=== PATIENT | female | born 1955 | race Caucasian/White ===

== ENCOUNTER 2016-07-20 10:59 | Day surgery (SDC) | payer OTHER ==
[~2016-07-20] VITALS: Ht 149.9 cm; Wt 77.1 kg
[~2016-07-20 10:59] MED LIST: ACCOLATE20 MG PO; ADVAIR HFA120 INHAL1 IH; ADVAIR HFA120 INHALA IH; ALBUTEROL2.5 MG/3 M IH; ALPRAZOLAM1 MG PO; ALPRAZOLAM2 MG PO; AMBIEN10 MG PO; ATENOLOL25 MG PO; AUGMENTIN875 MG PO; BACLOFEN20 MG PO; BENADRYL ALLERG25 MG PO; BENADRYL25 MG PO; BENZONATATE200 MG PO; BUSPAR5 MG PO; CEFTIN500 MG PO; CELEBREX100 MG PO; CELEBREX200 MG PO; CELEXA20 MG PO; CELEXA40 MG PO; CENTRUM SILVER1 EAC4 PO; CIPRO250 MG PO; CITALOPRAM HBR20 MG PO; CITALOPRAM HBR40 MG PO; CRANBERRY TABL1 EACH PO; DESYREL100 MG PO; DOXYCYCLINE HY100 M3 PO; DOXYCYCLINE HY100 MG PO; DOXYCYCLINE MO100 MG PO; DULERA 200 MCG/13 GM IH; EX-LAX MAXIMUM25 MG PO; FLEXERIL10 MG PO; FLOVENT 22120 INHALA IH; FLUCONAZOLE150 MG PO; FOLIC ACID0.4 MG PO; GABAPENTIN100 MG PO; GABAPENTIN300 MG PO; HYDROCODON-ACE1 EAC7 PO; HYDROXYCHLOROQ200 MG PO; IBUPROFEN200 M1 PO; INCRUSE ELLI62.5 MCG IH; INDAPAMIDE2.5 MG PO; IPRATR-ALBUTEROL3 ML IH; LEVAQUIN500 MG PO; LEVOFLOXACIN750 MG PO; LIDOCAINE700 MG TD; LIDOCREAM15 GM TP; LOZOL2.5 MG PO; MECLIZINE HCL25 MG PO; MELOXICAM15 MG PO; MOBIC15 MG PO; MONTELUKAST SOD10 MG PO; MOTION SICKNESS25 M4 PO; MS CONTIN,ORAMO30 MG PO; MYCOSTATIN 100,60 ML PO; NEURONTIN300 MG PO; NEURONTIN400 MG PO; OXAYDO5 MG PO; OXYCODONE HCL15 MG PO; PERCOCET 5/31 TABLET PO; PHENAZOPYRIDIN200 MG PO; PLAQUENIL200 MG PO; PREDNISONE10 MG PO; PREDNISONE20 MG PO; PRILOSEC OTC20 MG PO; PRILOSEC20 MG PO; PRILOSEC40 MG PO; PYRIDIUM200 MG PO; QUETIAPINE FUM200 MG PO; Remove Lidoderm Patch TD; SANTYL30 GM TP; SEROQUEL100 MG PO; SEROQUEL200 MG PO; SINGULAIR10 MG PO; SPIRIVA RESPIMAT4 GM IH; SPIRIVA1 INHALATI IH; TENORMIN25 MG PO; TESSALON200 MG PO; THEO-24200 MG PO; THEO-DUR,THEOC200 MG PO; THEOPHYLLINE A200 M1 PO; TRAMADOL HCL50 MG PO; Tums,OsCal PO; VENTOLIN HFA18 GM IH; VISTARIL50 MG PO; VITAMIN B12 100MCG PO; VOLTAREN75 MG PO; XANAX0.25 MG PO; XANAX1 MG PO; ZANAFLEX6 MG PO; ZOFRAN4 MG PO; ZOFRAN8 MG PO; flovent; morphine sulfate
== END 2016-07-20 13:00 | disposition home or self-care (01) ==
LOC: PAIN 10:59 → SDC 11:30 → PAIN 13:00
PROC: 015B3ZZ Destruction of Lumbar Nerve, Percutaneous Approach (ICD-10-PCS; principal; 2016-07-20)
DX: M47.816 Spondylosis without myelopathy or radiculopathy, lumbar region (principal); M54.5 Low back pain; F41.9 Anxiety disorder, unspecified; D86.0 Sarcoidosis of lung; J45.909 Unspecified asthma, uncomplicated; J44.9 Chronic obstructive pulmonary disease, unspecified; G47.30 Sleep apnea, unspecified; I11.0 Hypertensive heart disease with heart failure; I50.9 Heart failure, unspecified; E78.5 Hyperlipidemia, unspecified; F43.23 Adjustment disorder with mixed anxiety and depressed mood; F13.20 Sedative, hypnotic or anxiolytic dependence, uncomplicated; K21.9 Gastro-esophageal reflux disease without esophagitis; R73.09 Other abnormal glucose; Z87.891 Personal history of nicotine dependence; Z88.2 Allergy status to sulfonamides; Z88.6 Allergy status to analgesic agent; Z88.8 Allergy status to other drugs, medicaments and biological substances; Z91.041 Radiographic dye allergy status
CPT/HCPCS: J1030; J2250; J2405; J3010; S0020

== ENCOUNTER 2016-08-12 11:31 | Day surgery (SDC) | payer OTHER ==
[~2016-08-12] VITALS: Ht 149.9 cm; Wt 76.7 kg
[2016-08-12] MEDS ORDERED: ORAPRED ODT10 MG PO (12:16)
== END 2016-08-12 15:35 | disposition home or self-care (01) ==
LOC: PAIN 11:31 → SDC 11:45 → PAIN 15:35
PROC: 015B3ZZ Destruction of Lumbar Nerve, Percutaneous Approach (ICD-10-PCS; principal; 2016-08-12)
DX: M47.816 Spondylosis without myelopathy or radiculopathy, lumbar region (principal); M54.5 Low back pain; F41.9 Anxiety disorder, unspecified; M87.052 Idiopathic aseptic necrosis of left femur; D86.9 Sarcoidosis, unspecified; J45.909 Unspecified asthma, uncomplicated; J44.9 Chronic obstructive pulmonary disease, unspecified; G47.30 Sleep apnea, unspecified; I11.0 Hypertensive heart disease with heart failure; I50.9 Heart failure, unspecified; E78.5 Hyperlipidemia, unspecified; Z87.891 Personal history of nicotine dependence; Z88.2 Allergy status to sulfonamides; Z88.6 Allergy status to analgesic agent; Z88.8 Allergy status to other drugs, medicaments and biological substances; Z91.041 Radiographic dye allergy status
CPT/HCPCS: J1030; J1885; J2250; J3010; S0020

== ENCOUNTER 2016-12-07 08:41 | Day surgery (SDC) | payer OTHER ==
[~2016-12-07] VITALS: Ht 152.4 cm; Wt 81.7 kg
[~2016-12-07 08:41] MED LIST changes: +DULERA 100 MCG/13 GM IH; +ORAPRED ODT10 MG PO; +ZOLOFT100 MG PO
== END 2016-12-07 10:30 | disposition home or self-care (01) ==
LOC: PAIN 08:41 → SDC 09:00 → PAIN 10:30
DX: M16.12 Unilateral primary osteoarthritis, left hip (principal); M47.816 Spondylosis without myelopathy or radiculopathy, lumbar region; M54.2 Cervicalgia; M54.9 Dorsalgia, unspecified; G89.29 Other chronic pain; J44.9 Chronic obstructive pulmonary disease, unspecified; K21.9 Gastro-esophageal reflux disease without esophagitis; I11.0 Hypertensive heart disease with heart failure; I50.9 Heart failure, unspecified; G47.30 Sleep apnea, unspecified; F41.9 Anxiety disorder, unspecified; J45.50 Severe persistent asthma, uncomplicated; D64.9 Anemia, unspecified; E66.3 Overweight; Z68.35 Body mass index [BMI] 35.0-35.9, adult; D86.0 Sarcoidosis of lung; Z87.891 Personal history of nicotine dependence; Z79.891 Long term (current) use of opiate analgesic; Z88.2 Allergy status to sulfonamides
CPT/HCPCS: J1030; J1100; J2250; J2405; J3010; S0020

== ENCOUNTER → 2017-02-18 | Outpatient (CLI) | payer OTHER ==
[~2017-02-18] VITALS: Ht 149.9 cm; Wt 83.5 kg
[~2017-02-18] MED LIST changes: +IRON325 M1 PO
== END | disposition home or self-care (01) ==
LOC: AMB 10:29
DX: D50.9 Iron deficiency anemia, unspecified (principal); Z53.09 Procedure and treatment not carried out because of other contraindication; Z80.0 Family history of malignant neoplasm of digestive organs; K59.09 Other constipation; R19.7 Diarrhea, unspecified; M19.90 Unspecified osteoarthritis, unspecified site; G47.33 Obstructive sleep apnea (adult) (pediatric); R73.03 Prediabetes; D86.0 Sarcoidosis of lung; Z87.891 Personal history of nicotine dependence; Z79.891 Long term (current) use of opiate analgesic; J44.9 Chronic obstructive pulmonary disease, unspecified; K21.9 Gastro-esophageal reflux disease without esophagitis; F43.23 Adjustment disorder with mixed anxiety and depressed mood; J45.50 Severe persistent asthma, uncomplicated; E66.3 Overweight; Z68.38 Body mass index [BMI] 38.0-38.9, adult; F13.20 Sedative, hypnotic or anxiolytic dependence, uncomplicated; G89.29 Other chronic pain; M54.9 Dorsalgia, unspecified; E78.5 Hyperlipidemia, unspecified; I11.0 Hypertensive heart disease with heart failure; I50.9 Heart failure, unspecified; Z88.8 Allergy status to other drugs, medicaments and biological substances; Z87.442 Personal history of urinary calculi; Z88.2 Allergy status to sulfonamides; Z91.041 Radiographic dye allergy status
CPT/HCPCS: 93005; J2405; J3010

== ENCOUNTER → 2017-04-14 | Outpatient (CLI) | payer OTHER ==
[~2017-04-14] VITALS: Ht 152.4 cm; Wt 83.9 kg
[~2017-04-14] MED LIST changes: +MOVANTIK25 MG PO
[2017-04-14 09:35] LABS: INTER. NORMALIZED RATIO 1.2
[2017-04-14 09:38] LABS: EOSINOPHIL (%) 5.1 % (0-5); EOSINOPHIL COUNT 0.2 K/uL (0-0.3); HEMATOCRIT 29.2 % (36.0-46.0); INSTRUMENT ABS NEUTROPHIL CT 2.3 K/uL; LYMPHOCYTE COUNT 1.5 K/uL (1.0-2.8); MCH 20.3 PG (29.0-34.0); MCHC 28.4 G/DL (30.0-36.0); MCV 71.6 FL (83-99); MONOCYTE (%) 9.8 % (3-12); MONOCYTE COUNT 0.4 K/uL (0-0.8); NEUTROPHIL (%) 50.9 % (45-76); NEUTROPHIL COUNT 2.3 K/uL (1.8-6.4); PLATELET COUNT 208 K/uL (156-360); RBC DIS.WIDTH-CV 19.7 % (11.8-14.6); RBC DIS.WIDTH-SD 50.1 % (39-53); RED BLOOD COUNT 4.08 M/uL (3.80-5.20); WHITE BLOOD COUNT 4.5 K/uL (4.1-10.2)
[2017-04-14 10:21] LABS: ABS NEUTROPHIL COUNT 2.3; ANISOCYTOSIS 1+; BASOPHILS 1.8 %; EOSINOPHIL ABS CT 0.3; LYMPHOCYTES 34.2 % (15.0-45.0); MICROCYTOSIS 1+; NUCLEATED RBC'S 0.9; OVALOCYTES 1+; PLAT.SUFFICIENCY ADEQUATE; POIKILOCYTOSIS 1+; SMUDGE CELLS 3.5
[2017-04-17 17:17] LABS: NUMBER OF MARKERS 22; SPECIMEN VIABILITY 98
[2017-04-18 10:16] LABS: MISCELLANEOUS REF BONE MARROW NOT DONE
== END | disposition home or self-care (01) ==
LOC: OPR 04-06 10:00 → EDSTATUS 09:00 → OPR 09:00
PROVIDERS: Internal Medicine Medical Oncology
PROC: 07DS3ZX Extraction of Vertebral Bone Marrow, Percutaneous Approach, Diagnostic (ICD-10-PCS; principal; 2017-04-14)
DX: D50.9 Iron deficiency anemia, unspecified (principal); D64.9 Anemia, unspecified; R71.8 Other abnormality of red blood cells; M54.5 Low back pain; K21.9 Gastro-esophageal reflux disease without esophagitis; J44.9 Chronic obstructive pulmonary disease, unspecified; M62.838 Other muscle spasm; D86.9 Sarcoidosis, unspecified; R42 Dizziness and giddiness; R21 Rash and other nonspecific skin eruption; R51 Headache; R19.7 Diarrhea, unspecified; F43.23 Adjustment disorder with mixed anxiety and depressed mood; G89.29 Other chronic pain; J45.50 Severe persistent asthma, uncomplicated; F13.20 Sedative, hypnotic or anxiolytic dependence, uncomplicated; I11.0 Hypertensive heart disease with heart failure; I50.9 Heart failure, unspecified; E78.5 Hyperlipidemia, unspecified; M06.4 Inflammatory polyarthropathy; G47.33 Obstructive sleep apnea (adult) (pediatric); Z88.6 Allergy status to analgesic agent; Z88.2 Allergy status to sulfonamides; Z88.8 Allergy status to other drugs, medicaments and biological substances; Z91.013 Allergy to seafood
CPT/HCPCS: 77012; 85007; 85025; 85610; J2405; J3010

== ENCOUNTER 2017-08-12 15:32 | Inpatient (IN) | payer OTHER ==
[~2017-08-12] VITALS: Ht 152.4 cm; Wt 88.2 kg
[~2017-08-12 15:32] MED LIST changes: +ALBUTEROL1.25 MG/3 IH; -ALBUTEROL2.5 MG/3 M IH; +BACLOFEN10 MG PO; -BACLOFEN20 MG PO; +BUSPAR30 MG PO; -BUSPAR5 MG PO; -NEURONTIN300 MG PO; -PRILOSEC OTC20 MG PO; -THEOPHYLLINE A200 M1 PO; +THEOPHYLLINE400 MG PO
[2017-08-12 16:03] LABS: HEMATOCRIT 28.9 % (36.0-46.0); HEMOGLOBIN 8.6 G/DL (11.9-15.5); MCH 23.1 PG (29.0-34.0); MCHC 29.8 G/DL (30.0-36.0); MCV 77.7 FL (83-99); PLATELET COUNT 217 K/uL (156-360); RBC DIS.WIDTH-CV 17.6 % (11.8-14.6); RBC DIS.WIDTH-SD 50.3 % (39-53); RED BLOOD COUNT 3.72 M/uL (3.80-5.20); WHITE BLOOD COUNT 5.7 K/uL (4.1-10.2)
[2017-08-12 16:11] LABS: CHLORIDE 107 mEq/L (99-109); POTASSIUM 3.3 mEq/L (3.7-5.4); SODIUM 141 mEq/L (136-147)
[2017-08-12 16:13] LABS: GLUCOSE 113 mg/dL (70-99)
[2017-08-12 16:16] LABS: CREATININE 0.8 mg/dL (0.6-1.3); GFR ESTIMATE (CALCULATED) > 59 mL/min/
[2017-08-12 16:17] LABS: UREA NITROGEN (BUN) 13 mg/dL (9-23)
[2017-08-12 16:23] LABS: TROP-I INTERPRETATION NEGATIVE; TROPONIN-I < 0.01 ng/mL (0.0-0.30)
[2017-08-12 17:49] LABS: APPEARANCE CLOUDY ((CLEAR)); BILIRUBIN NEGATIVE; BLOOD NEGATIVE; COLOR YELLOW ((YELLOW)); GLUCOSE (STRIP) NEGATIVE; KETONES NEGATIVE; LEUKOCYTES LARGE; NITRITE NEGATIVE; PROTEIN (STRIP) 30; SPECIFIC GRAVITY 1.024 (1.000-1.030); UROBILINOGEN 0.2 MG/DL (0.2-1.0)
[2017-08-12 18:06] LABS: BACTERIA RARE /HPF; CALCIUM OXALATE CRYSTALS 4+ /HPF; EPITHELIAL CELLS 2+ /HPF; HYALINE CASTS 0-5 /LPF; MUCUS TRACE /LPF; WHITE BLOOD CELLS 15-20 /HPF (0-5)
[2017-08-12] MEDS ORDERED: BELSOMRA20 MG PO (18:20)
[2017-08-12] MEDS ORDERED: CEFTIN500 MG PO (18:20)
[2017-08-12] MEDS ORDERED: BREO ELLIPTA I1 EACH IH (18:21)
[2017-08-12 19:23] LABS: ALBUMIN 3.4 g/dL (3.2-4.8)
[2017-08-12 19:26] LABS: TOTAL PROTEIN 7.4 g/dL (6.4-8.3)
[2017-08-12 19:28] LABS: TOTAL BILIRUBIN 0.2 mg/dL (0.0-1.0)
[2017-08-12 19:29] LABS: ALKALINE PHOSPHATASE 77 IU/L (3-129)
[2017-08-12 19:31] LABS: AST (GOT) 19 IU/L (2-34); DIRECT BILIRUBIN 0.1 mg/dL (0.0-0.3)
[2017-08-12 19:32] LABS: ALT (GPT) 7 IU/L (3-49)
[2017-08-12 20:01] LABS: THEOPHYLLINE 7.6 MCG/ML (10-20)
[2017-08-12 21:20] VITALS: BP 112/66
[2017-08-12 23:44] VITALS: BP 110/64
[2017-08-13 04:00] VITALS: BP 128/76
[2017-08-13 06:33] LABS: BASOPHIL (%) 0 % (0-1); EOSINOPHIL (%) 0 % (0-5); HEMATOCRIT 28.7 % (36.0-46.0); HEMOGLOBIN 8.2 G/DL (11.9-15.5); IMMATURE GRANULOCYTE (%) 0.6 % (0.0-0.7); LYMPHOCYTE (%) 16.4 % (15-42); LYMPHOCYTE COUNT 0.6 K/uL (1.0-2.8); MCH 22.8 PG (29.0-34.0); MCHC 28.6 G/DL (30.0-36.0); MCV 79.9 FL (83-99); MONOCYTE (%) 1.4 % (3-12); MONOCYTE COUNT 0.1 K/uL (0-0.8); NEUTROPHIL (%) 81.6 % (45-76); NEUTROPHIL COUNT 2.9 K/uL (1.8-6.4); PLATELET COUNT 216 K/uL (156-360); RBC DIS.WIDTH-CV 17.7 % (11.8-14.6); RBC DIS.WIDTH-SD 51.8 % (39-53); RED BLOOD COUNT 3.59 M/uL (3.80-5.20); WHITE BLOOD COUNT 3.6 K/uL (4.1-10.2)
[2017-08-13 07:15] LABS: CHLORIDE 112 MEQ/L (99-109); CREATININE 0.6 MG/DL (0.6-1.3); GFR ESTIMATE (CALCULATED) > 59 mL/min/; SODIUM 144 MEQ/L (136-147); UREA NITROGEN (BUN) 12 mg/dL (9-23)
[2017-08-13 07:23] LABS: GLUCOSE 225 mg/dL (70-99); POTASSIUM 4.2 MEQ/L (3.7-5.4)
[2017-08-13 08:17] VITALS: BP 145/71
[2017-08-13 13:28] VITALS: BP 147/72
[2017-08-13 16:41] VITALS: BP 136/89
[2017-08-13 20:12] VITALS: BP 160/70
[2017-08-14 00:02] VITALS: BP 130/58
[2017-08-14 03:47] VITALS: BP 130/58
[2017-08-14 08:19] VITALS: BP 149/69
[2017-08-14 08:43] LABS: BASOPHIL (%) 0.1 % (0-1); EOSINOPHIL (%) 0 % (0-5); HEMATOCRIT 27.8 % (36.0-46.0); HEMOGLOBIN 8.1 G/DL (11.9-15.5); IMMATURE GRANULOCYTE (%) 0.5 % (0.0-0.7); LYMPHOCYTE (%) 8.9 % (15-42); LYMPHOCYTE COUNT 0.7 K/uL (1.0-2.8); MCH 22.9 PG (29.0-34.0); MCHC 29.1 G/DL (30.0-36.0); MCV 78.8 FL (83-99); MONOCYTE (%) 2.8 % (3-12); MONOCYTE COUNT 0.2 K/uL (0-0.8); NEUTROPHIL (%) 87.7 % (45-76); NEUTROPHIL COUNT 7.2 K/uL (1.8-6.4); PLATELET COUNT 247 K/uL (156-360); RBC DIS.WIDTH-CV 17.6 % (11.8-14.6); RBC DIS.WIDTH-SD 50.3 % (39-53); RED BLOOD COUNT 3.53 M/uL (3.80-5.20); WHITE BLOOD COUNT 8.2 K/uL (4.1-10.2)
[2017-08-14 09:25] LABS: CHLORIDE 109 MEQ/L (99-109); CREATININE 0.6 MG/DL (0.6-1.3); GFR ESTIMATE (CALCULATED) > 59 mL/min/; GLUCOSE 130 mg/dL (70-99); SODIUM 146 MEQ/L (136-147); UREA NITROGEN (BUN) 16 mg/dL (9-23)
[2017-08-14 09:26] LABS: POTASSIUM 5.2 MEQ/L (3.7-5.4)
[2017-08-15] VITALS: BP 119/68
[2017-08-15 06:16] LABS: BASOPHIL (%) 0.3 % (0-1); EOSINOPHIL (%) 0.4 % (0-5); HEMATOCRIT 26.3 % (36.0-46.0); HEMOGLOBIN 7.6 G/DL (11.9-15.5); IMMATURE GRANULOCYTE (%) 0.3 % (0.0-0.7); LYMPHOCYTE (%) 24.9 % (15-42); LYMPHOCYTE COUNT 1.9 K/uL (1.0-2.8); MCH 22.7 PG (29.0-34.0); MCHC 28.9 G/DL (30.0-36.0); MCV 78.5 FL (83-99); MONOCYTE (%) 6.3 % (3-12); MONOCYTE COUNT 0.5 K/uL (0-0.8); NEUTROPHIL (%) 67.8 % (45-76); NEUTROPHIL COUNT 5.2 K/uL (1.8-6.4); PLATELET COUNT 221 K/uL (156-360); RBC DIS.WIDTH-CV 17.9 % (11.8-14.6); RED BLOOD COUNT 3.35 M/uL (3.80-5.20); WHITE BLOOD COUNT 7.7 K/uL (4.1-10.2)
[2017-08-15 06:41] LABS: ALKALINE PHOSPHATASE 57 IU/L (3-129); ALT (GPT) 7 IU/L (3-49); AST (GOT) 14 IU/L (2-34); CHLORIDE 109 MEQ/L (99-109); CREATININE 0.7 MG/DL (0.6-1.3); GFR ESTIMATE (CALCULATED) > 59 mL/min/; GLUCOSE 106 mg/dL (70-99); SODIUM 145 MEQ/L (136-147); TOTAL BILIRUBIN 0.2 MG/DL (0.0-1.0); TOTAL PROTEIN 6.1 G/DL (6.4-8.3); UREA NITROGEN (BUN) 16 mg/dL (9-23)
[2017-08-15 06:43] LABS: POTASSIUM 3.6 MEQ/L (3.7-5.4)
[2017-08-15 08:00] VITALS: BP 140/76
[2017-08-15 16:00] VITALS: BP 144/84
[2017-08-16 01:01] VITALS: BP 177/93
[2017-08-16 06:40] LABS: BASOPHIL (%) 0.2 % (0-1); EOSINOPHIL (%) 0.2 % (0-5); HEMOGLOBIN 7.5 G/DL (11.9-15.5); IMMATURE GRANULOCYTE (%) 0.5 % (0.0-0.7); LYMPHOCYTE (%) 17.5 % (15-42); LYMPHOCYTE COUNT 1.2 K/uL (1.0-2.8); MCH 22.3 PG (29.0-34.0); MCHC 28.8 G/DL (30.0-36.0); MCV 77.2 FL (83-99); MONOCYTE (%) 4.4 % (3-12); MONOCYTE COUNT 0.3 K/uL (0-0.8); NEUTROPHIL (%) 77.2 % (45-76); NEUTROPHIL COUNT 5.1 K/uL (1.8-6.4); PLATELET COUNT 242 K/uL (156-360); RBC DIS.WIDTH-CV 17.3 % (11.8-14.6); RBC DIS.WIDTH-SD 49.3 % (39-53); RED BLOOD COUNT 3.37 M/uL (3.80-5.20); WHITE BLOOD COUNT 6.6 K/uL (4.1-10.2)
[2017-08-16 07:04] LABS: ALBUMIN 3.1 G/DL (3.2-4.8); ALKALINE PHOSPHATASE 64 IU/L (3-129); ALT (GPT) 8 IU/L (3-49); AST (GOT) 16 IU/L (2-34); CHLORIDE 107 MEQ/L (99-109); CREATININE 0.6 MG/DL (0.6-1.3); GFR ESTIMATE (CALCULATED) > 59 mL/min/; GLUCOSE 115 mg/dL (70-99); SODIUM 143 MEQ/L (136-147); TOTAL BILIRUBIN 0.2 MG/DL (0.0-1.0); TOTAL PROTEIN 6.2 G/DL (6.4-8.3); UREA NITROGEN (BUN) 12 mg/dL (9-23)
[2017-08-16 07:09] LABS: POTASSIUM 4.5 MEQ/L (3.7-5.4)
[2017-08-16 08:50] VITALS: BP 181/96
[2017-08-16 12:05] VITALS: BP 143/73
[2017-08-16 12:33] VITALS: BP 151/90
[2017-08-16 13:33] VITALS: BP 140/69
[2017-08-16 14:30] VITALS: BP 160/79
[2017-08-16] MEDS ORDERED: LEVAQUIN750 MG PO ×2 (15:45→15:49)
[2017-08-16] MEDS ORDERED: PREDNISONE10 MG PO ×2 (15:45→15:48)
[2017-08-16] MEDS ORDERED: MUCINEX600 MG PO ×2 (15:45→15:48)
== END 2017-08-16 17:14 | disposition home health service (06) | DRG 871 ==
LOC: EME 15:32 → 5SOUTH 18:54 → EDOF 18:54 → ENRESERV 19:08 → 5SOUTH 21:05
PROVIDERS: Hospitalist; Internal Medicine; Nurse Practitioner Family
PROC: 5A09357 Assistance with Respiratory Ventilation, Less than 24 Consecutive Hours, Continuous Positive Airway Pressure (ICD-10-PCS; principal; 2017-08-14)
PROC: 30233N1 Transfusion of Nonautologous Red Blood Cells into Peripheral Vein, Percutaneous Approach (ICD-10-PCS; 2017-08-16)
DX: A41.9 Sepsis, unspecified organism (principal); J15.9 Unspecified bacterial pneumonia; J96.11 Chronic respiratory failure with hypoxia; J44.0 Chronic obstructive pulmonary disease with (acute) lower respiratory infection; J44.1 Chronic obstructive pulmonary disease with (acute) exacerbation; I11.0 Hypertensive heart disease with heart failure; I50.32 Chronic diastolic (congestive) heart failure; I27.20 Pulmonary hypertension, unspecified; E87.6 Hypokalemia; G47.33 Obstructive sleep apnea (adult) (pediatric); D86.0 Sarcoidosis of lung; F11.20 Opioid dependence, uncomplicated; G89.29 Other chronic pain; M54.5 Low back pain; E78.00 Pure hypercholesterolemia, unspecified; D50.9 Iron deficiency anemia, unspecified; K21.9 Gastro-esophageal reflux disease without esophagitis; F41.9 Anxiety disorder, unspecified; F31.9 Bipolar disorder, unspecified; M19.90 Unspecified osteoarthritis, unspecified site; E66.9 Obesity, unspecified; Z68.37 Body mass index [BMI] 37.0-37.9, adult; Z87.891 Personal history of nicotine dependence; Z87.442 Personal history of urinary calculi; Z90.710 Acquired absence of both cervix and uterus
CPT/HCPCS: 71046; 71250; 80048; 80053; 80076; 80198; 80202; 81003; 83605; 83880; 84484; 85025; 85027; 86850; 86870; 86900; 86901; 86905; 86920; 87040; 87070; 87205; 87449; 93005; 93306; 94010; 94640; 94640 76; 94660; 94668; 94760; 94799; 99202; 99281; 99285; J0295; J0456; J0696; J1650; J1940; J2920; J2930; J3370; J7030; J7050; P9016

== ENCOUNTER 2017-09-26 11:04 | Day surgery (SDC) | payer OTHER ==
[~2017-09-26] VITALS: Ht 152.4 cm; Wt 84.4 kg
[~2017-09-26 11:04] MED LIST changes: +BELSOMRA20 MG PO; +BREO ELLIPTA I1 EACH IH; +LEVAQUIN750 MG PO; +MUCINEX600 MG PO
== END 2017-09-26 12:45 | disposition home or self-care (01) ==
LOC: PAIN 11:04 → SDC 11:30 → PAIN 12:45
DX: M16.12 Unilateral primary osteoarthritis, left hip (principal); M87.052 Idiopathic aseptic necrosis of left femur; M47.818 Spondylosis without myelopathy or radiculopathy, sacral and sacrococcygeal region; M62.838 Other muscle spasm; G89.29 Other chronic pain; M54.9 Dorsalgia, unspecified; I11.0 Hypertensive heart disease with heart failure; I50.9 Heart failure, unspecified; D50.9 Iron deficiency anemia, unspecified; J44.9 Chronic obstructive pulmonary disease, unspecified
CPT/HCPCS: J1030; J2250; S0020

== ENCOUNTER 2017-10-05 20:41 | Inpatient (IN) | payer OTHER ==
[~2017-10-05] VITALS: Ht 152.4 cm; Wt 83.4 kg
[2017-10-05 21:14] LABS: BASE EXCESS -5.5 mEq/L (-3 to +3); BICARBONATE 22.3 mEq/L (22-26); CARBOXY HGB 2.4 % (0-5); COMMENTS - BLOOD GASES C+A+; DEVICE 840 VENT; FI02 80 %; METHEMOGLOBIN 0.9 % (0-1.5); MODE SPONT/NIPPV; PCO2 52 mm Hg (35-45); PO2 53 mm Hg (80-100); SITE LR; TOTAL RESP RATE 25 resp/min; pH 7.24 (7.35-7.45)
[2017-10-05 21:15] LABS: PEEP 5 CM/H20; PRES. SUPPORT 12 CM/H2O
[2017-10-05 21:17] LABS: HEMOGLOBIN 13.2 G/DL (11.9-15.5); MCH 26.1 PG (29.0-34.0); MCHC 30.7 G/DL (30.0-36.0); MCV 85.1 FL (83-99); PLATELET COUNT 181 K/uL (156-360); RBC DIS.WIDTH-CV 22.2 % (11.8-14.6); RBC DIS.WIDTH-SD 67.8 % (39-53); RED BLOOD COUNT 5.05 M/uL (3.80-5.20); WHITE BLOOD COUNT 3.5 K/uL (4.1-10.2)
[2017-10-05 21:27] LABS: CHLORIDE 110 mEq/L (99-109); POTASSIUM 3.1 mEq/L (3.7-5.4); SODIUM 142 mEq/L (136-147)
[2017-10-05 21:29] LABS: GLUCOSE 138 mg/dL (70-99)
[2017-10-05 21:33] LABS: CREATININE 0.8 mg/dL (0.6-1.3); GFR ESTIMATE (CALCULATED) > 59 mL/min/
[2017-10-05 21:34] LABS: UREA NITROGEN (BUN) 14 mg/dL (9-23)
[2017-10-05 21:37] LABS: TROP-I INTERPRETATION NEGATIVE; TROPONIN-I 0.02 ng/mL (0.0-0.30)
[2017-10-05 22:09] LABS: ABS NEUTROPHIL COUNT 2.1; ATYPICAL LYMPHOCYTE 9.8 %; BAND NEUTROPHILS 39.3 % (0-8.0); BASOPHILS 0.9 %; EOSINOPHIL ABS CT 0.1; EOSINOPHILS 1.8 % (0-5.0); LYMPHOCYTES 9.8 % (15.0-45.0); METAMYELOCYTES 8.9 %; MONOCYTES 8.1 % (0-9.0); SEG.NEUTROPHILS 21.4 % (46.0-76.0)
[2017-10-05 22:28] LABS: BASE EXCESS -5.3 mEq/L (-3 to +3); BICARBONATE 22.9 mEq/L (22-26); CARBOXY HGB 2.2 % (0-5); COMMENTS - BLOOD GASES C+A+; DEVICE 980 VENT; METHEMOGLOBIN 1.1 % (0-1.5); PCO2 56 mm Hg (35-45); PO2 68 mm Hg (80-100); SITE LR; pH 7.22 (7.35-7.45)
[2017-10-05 22:29] LABS: FI02 80 %; MODE SPONT NIPPV; PEEP 5 CM/H20; PRES. SUPPORT 12 CM/H2O; TOTAL RESP RATE 24 resp/min
[2017-10-05 23:32] LABS: MAGNESIUM 1.2 mg/dL (1.3-2.7)
[2017-10-05 23:56] VITALS: BP 103/63
[2017-10-06] VITALS (20 sets, daily range): BP systolic 91–144; BP diastolic 52–86
[2017-10-06 03:15] LABS: HEMATOCRIT 35.1 % (36.0-46.0); MCH 26.4 PG (29.0-34.0); MCHC 30.8 G/DL (30.0-36.0); MCV 85.8 FL (83-99); RBC DIS.WIDTH-CV 21.9 % (11.8-14.6); RBC DIS.WIDTH-SD 68.1 % (39-53); RED BLOOD COUNT 4.09 M/uL (3.80-5.20); WHITE BLOOD COUNT 3.7 K/uL (4.1-10.2)
[2017-10-06 03:20] LABS: CHLORIDE 109 mEq/L (99-109); POTASSIUM 3.3 mEq/L (3.7-5.4); SODIUM 142 mEq/L (136-147)
[2017-10-06 03:23] LABS: GLUCOSE 140 mg/dL (70-99)
[2017-10-06 03:26] LABS: CREATININE 0.7 mg/dL (0.6-1.3); GFR ESTIMATE (CALCULATED) > 59 mL/min/; PHOSPHORUS 2.1 mg/dL (2.5-4.9)
[2017-10-06 03:27] LABS: UREA NITROGEN (BUN) 14 mg/dL (9-23)
[2017-10-06 03:58] LABS: HEMOGLOBIN 10.8 G/DL (11.9-15.5)
[2017-10-06 05:17] LABS: ABS NEUTROPHIL COUNT 2.6; ANISOCYTOSIS 2+; ATYPICAL LYMPHOCYTE 3.5 %; EOSINOPHIL ABS CT 0; LYMPHOCYTES 12.3 % (15.0-45.0); METAMYELOCYTES 4.4 %; MICROCYTOSIS 2+; MONOCYTES 4.4 % (0-9.0); MYELOCYTES 4.4 %; OVALOCYTES 1+; PLAT.SUFFICIENCY DECREASED; POIKILOCYTOSIS 1+; POLYCHROMASIA 1+; TOX.VACUOLIZATION 2+; TOXIC GRANULATION 2+
[2017-10-06 05:18] LABS: PLATELET COUNT 126 K/uL (156-360)
[2017-10-06 05:29] LABS: BASE EXCESS -7.1 mEq/L (-3 to +3); BICARBONATE 21.1 mEq/L (22-26); METHEMOGLOBIN 1.5 % (0-1.5); PCO2 54 mm Hg (35-45); PO2 59 mm Hg (80-100); SITE LR
[2017-10-06 05:30] LABS: COMMENTS - BLOOD GASES A+C+; CONTINUOUS POS AIRWAY PRESSURE 5 cm H2O; DEVICE MASKVENT; FI02 60 %; MODE SPONT; PRES. SUPPORT 15 CM/H2O
[2017-10-06 07:59] LABS: ANISOCYTOSIS 1+; MICROCYTOSIS 1+; POIKILOCYTOSIS 1+
[2017-10-06 11:21] LABS: BASE EXCESS -7.5 mEq/L (-3 to +3); BICARBONATE 20.7 mEq/L (22-26); CARBOXY HGB 2.1 % (0-5); METHEMOGLOBIN 1.5 % (0-1.5); PCO2 53 mm Hg (35-45); PO2 69 mm Hg (80-100)
[2017-10-06 11:23] LABS: SITE RR
[2017-10-06 11:24] LABS: COMMENTS - BLOOD GASES A+C+; DEVICE HHFNC; FI02 70 %; O2 FLOW 30 L/MIN
[2017-10-07] VITALS (15 sets, daily range): BP systolic 98–158; BP diastolic 48–83
[2017-10-08 04:00] VITALS: BP 133/63
[2017-10-08 05:57] LABS: HEMATOCRIT 32.8 % (36.0-46.0); MCH 26.1 PG (29.0-34.0); MCHC 30.5 G/DL (30.0-36.0); MCV 85.6 FL (83-99); PLATELET COUNT 159 K/uL (156-360); RBC DIS.WIDTH-CV 24.3 % (11.8-14.6); RBC DIS.WIDTH-SD 76.1 % (39-53); RED BLOOD COUNT 3.83 M/uL (3.80-5.20); WHITE BLOOD COUNT 4.6 K/uL (4.1-10.2)
[2017-10-08 06:23] LABS: CHLORIDE 107 MEQ/L (99-109); CREATININE 0.6 MG/DL (0.6-1.3); GFR ESTIMATE (CALCULATED) > 59 mL/min/; GLUCOSE 129 mg/dL (70-99); MAGNESIUM 2.3 mg/dl (1.3-2.7); PHOSPHORUS 1.9 mg/dL (2.5-4.9); SODIUM 139 MEQ/L (136-147); UREA NITROGEN (BUN) 21 mg/dL (9-23)
[2017-10-08 06:24] LABS: POTASSIUM 4.6 MEQ/L (3.7-5.4)
[2017-10-08 06:57] LABS: ABS NEUTROPHIL COUNT 3.9; ANISOCYTOSIS 1+; BAND NEUTROPHILS 16.5 % (0-8.0); EOSINOPHIL ABS CT 0; LYMPHOCYTES 12.2 % (15.0-45.0); MACROCYTES 1+; MONOCYTES 2.6 % (0-9.0); NUCLEATED RBC'S 0.9; PLAT.SUFFICIENCY ADEQUATE; POIKILOCYTOSIS 1+
[2017-10-08 06:59] LABS: SEG.NEUTROPHILS 68.7 % (46.0-76.0)
[2017-10-08 07:30] VITALS: BP 133/75
[2017-10-08 10:32] LABS: BASE EXCESS 0.1 mEq/L (-3 to +3); BICARBONATE 26.4 mEq/L (22-26); CARBOXY HGB 1.8 % (0-5); DEVICE NCHH; FI02 100 %; METHEMOGLOBIN 1.4 % (0-1.5); O2 FLOW 40 L/MIN; PCO2 49 mm Hg (35-45); PO2 91 mm Hg (80-100); SITE RR; pH 7.34 (7.35-7.45)
[2017-10-08 10:33] LABS: TOTAL RESP RATE 20 resp/min
[2017-10-08 11:24] VITALS: BP 134/73
[2017-10-08 15:45] VITALS: BP 149/73
[2017-10-08 19:30] VITALS: BP 142/79
[2017-10-08 23:50] VITALS: BP 174/74
[2017-10-09 00:58] VITALS: BP 131/73
[2017-10-09 04:20] VITALS: BP 163/82
[2017-10-09 04:46] LABS: CHLORIDE 104 mEq/L (99-109); POTASSIUM 4.1 mEq/L (3.7-5.4); SODIUM 144 mEq/L (136-147)
[2017-10-09 04:48] LABS: GLUCOSE 148 mg/dL (70-99)
[2017-10-09 04:51] LABS: HEMATOCRIT 33.3 % (36.0-46.0); HEMOGLOBIN 10.5 G/DL (11.9-15.5); MCH 26.9 PG (29.0-34.0); MCHC 31.5 G/DL (30.0-36.0); MCV 85.2 FL (83-99); PLATELET COUNT 172 K/uL (156-360); RBC DIS.WIDTH-CV 24.6 % (11.8-14.6); RBC DIS.WIDTH-SD 75.7 % (39-53); RED BLOOD COUNT 3.91 M/uL (3.80-5.20); WHITE BLOOD COUNT 5.5 K/uL (4.1-10.2)
[2017-10-09 04:52] LABS: CREATININE 0.7 mg/dL (0.6-1.3); GFR ESTIMATE (CALCULATED) > 59 mL/min/
[2017-10-09 04:53] LABS: UREA NITROGEN (BUN) 26 mg/dL (9-23)
[2017-10-09 05:03] LABS: PHOSPHORUS 3.5 mg/dL (2.5-4.9)
[2017-10-09 07:30] VITALS: BP 165/80
[2017-10-09 11:23] VITALS: BP 171/84
[2017-10-09 16:41] VITALS: BP 179/86
[2017-10-09 20:09] VITALS: BP 189/81
[2017-10-10] VITALS (7 sets, daily range): BP systolic 123–192; BP diastolic 60–91
[2017-10-10 06:08] LABS: CHLORIDE 97 MEQ/L (99-109); CREATININE 0.7 MG/DL (0.6-1.3); GFR ESTIMATE (CALCULATED) > 59 mL/min/; GLUCOSE 135 mg/dL (70-99); POTASSIUM 3.9 MEQ/L (3.7-5.4); SODIUM 141 MEQ/L (136-147); UREA NITROGEN (BUN) 22 mg/dL (9-23)
[2017-10-11 03:46] VITALS: BP 143/60
[2017-10-11 06:21] LABS: CHLORIDE 96 MEQ/L (99-109); CREATININE 0.7 MG/DL (0.6-1.3); GFR ESTIMATE (CALCULATED) > 59 mL/min/; GLUCOSE 128 mg/dL (70-99); SODIUM 140 MEQ/L (136-147); UREA NITROGEN (BUN) 17 mg/dL (9-23)
[2017-10-11 06:23] LABS: MAGNESIUM 1.8 mg/dl (1.3-2.7)
[2017-10-11 07:56] VITALS: BP 143/71
[2017-10-11 11:52] VITALS: BP 170/90
[2017-10-11 14:45] LABS: C DIFF TOXIN POSITIVE (NEGATIVE)
[2017-10-11 17:00] VITALS: BP 126/91
[2017-10-11 20:00] VITALS: BP 133/62
[2017-10-11 23:55] VITALS: BP 129/60
[2017-10-12] VITALS (11 sets, daily range): BP systolic 98–221; BP diastolic 58–103
[2017-10-12 02:43] LABS: BASE EXCESS -2.9 mEq/L (-3 to +3); BICARBONATE 30.7 mEq/L (22-26); CARBOXY HGB 2.4 % (0-5); COMMENTS - BLOOD GASES C+; DEVICE NCHH; METHEMOGLOBIN 1.3 % (0-1.5); PCO2 111 mm Hg (35-45); PO2 85 mm Hg (80-100); SITE RR; pH 7.05 (7.35-7.45)
[2017-10-12 03:24] LABS: HEMATOCRIT 41.2 % (36.0-46.0); MCH 26.7 PG (29.0-34.0); MCHC 30.8 G/DL (30.0-36.0); MCV 86.6 FL (83-99); NRBC (%) 0.2 /100 WBC (0-0); RBC DIS.WIDTH-CV 23.9 % (11.8-14.6); RBC DIS.WIDTH-SD 74.3 % (39-53); WHITE BLOOD COUNT 9.2 K/uL (4.1-10.2)
[2017-10-12 03:28] LABS: INTER. NORMALIZED RATIO 1.2
[2017-10-12 03:31] LABS: PTT 31.5 SEC (25-37)
[2017-10-12 03:35] LABS: CHLORIDE 97 mEq/L (99-109); POTASSIUM 3.7 mEq/L (3.7-5.4); SODIUM 143 mEq/L (136-147)
[2017-10-12 03:36] LABS: GLUCOSE 122 mg/dL (70-99)
[2017-10-12 03:40] LABS: CREATININE 0.8 mg/dL (0.6-1.3); GFR ESTIMATE (CALCULATED) > 59 mL/min/
[2017-10-12 03:41] LABS: UREA NITROGEN (BUN) 15 mg/dL (9-23)
[2017-10-12 03:41] LABS: MAGNESIUM 1.7 mg/dL (1.3-2.7)
[2017-10-12 03:47] LABS: PHOSPHORUS 5.3 mg/dL (2.5-4.9)
[2017-10-12 04:03] LABS: BASE EXCESS 7.1 mEq/L (-3 to +3); CARBOXY HGB 1.8 % (0-5); METHEMOGLOBIN 1.2 % (0-1.5)
[2017-10-12 04:04] LABS: DEVICE VENT; FI02 100 %; MECHANICAL RATE 20 resp/min; MODE ACVC; PCO2 52 mm Hg (35-45); PEEP 5 CM/H20; PO2 135 mm Hg (80-100); SITE ALINE; TIDAL VOLUME 450 ML; TOTAL RESP RATE 20 resp/min; pH 7.41 (7.35-7.45)
[2017-10-12 04:52] LABS: APPEARANCE SL.HAZY ((CLEAR)); BILIRUBIN NEGATIVE; BLOOD NEGATIVE; COLOR YELLOW ((YELLOW)); GLUCOSE (STRIP) NEGATIVE; KETONES NEGATIVE; LEUKOCYTES NEGATIVE; NITRITE NEGATIVE; PROTEIN (STRIP) 100; SPECIFIC GRAVITY 1.026 (1.000-1.030); UROBILINOGEN 0.2 MG/DL (0.2-1.0)
[2017-10-12 04:58] LABS: BACTERIA RARE /HPF; EPITHELIAL CELLS RARE /HPF; HYALINE CASTS 0-5 /LPF; MUCUS TRACE /LPF; RED BLOOD CELLS 0-5 /HPF (0-5); WHITE BLOOD CELLS 0-5 /HPF (0-5)
[2017-10-12 05:00] LABS: ABS NEUTROPHIL COUNT 6.4; ANISOCYTOSIS 2+; ATYPICAL LYMPHOCYTE 6.1 %; BAND NEUTROPHILS 1.7 % (0-8.0); EOSINOPHIL ABS CT 0.3; EOSINOPHILS 3.5 % (0-5.0); LYMPHOCYTES 17.4 % (15.0-45.0); MACROCYTES 1+; METAMYELOCYTES 0.9 %; MICROCYTOSIS 1+; MONOCYTES 1.7 % (0-9.0); MYELOCYTES 0.9 %; NUCLEATED RBC'S 0.9; OVALOCYTES 2+; PLAT.SUFFICIENCY ADEQUATE; POIKILOCYTOSIS 1+; POLYCHROMASIA 1+; SEG.NEUTROPHILS 67.8 % (46.0-76.0); TEAR DROP CELLS 1+
[2017-10-12 06:24] LABS: TRIGLYCERIDES 149 MG/DL (Normal: <150)
[2017-10-12 09:34] LABS: HEMOGLOBIN 12.7 G/DL (11.9-15.5); PLATELET COUNT 253 K/uL (156-360); RED BLOOD COUNT 4.76 M/uL (3.80-5.20)
[2017-10-13 05:21] LABS: HEMATOCRIT 33.2 % (36.0-46.0); HEMOGLOBIN 10.4 G/DL (11.9-15.5); MCH 26.5 PG (29.0-34.0); MCHC 31.3 G/DL (30.0-36.0); MCV 84.7 FL (83-99); RBC DIS.WIDTH-CV 24.5 % (11.8-14.6); RBC DIS.WIDTH-SD 74.6 % (39-53); RED BLOOD COUNT 3.92 M/uL (3.80-5.20); WHITE BLOOD COUNT 4.8 K/uL (4.1-10.2)
[2017-10-13 05:23] LABS: CHLORIDE 105 mEq/L (99-109); SODIUM 145 mEq/L (136-147)
[2017-10-13 05:24] LABS: POTASSIUM 2.8 mEq/L (3.7-5.4)
[2017-10-13 05:25] LABS: GLUCOSE 119 mg/dL (70-99)
[2017-10-13 05:29] LABS: CREATININE 0.7 mg/dL (0.6-1.3); GFR ESTIMATE (CALCULATED) > 59 mL/min/
[2017-10-13 05:30] LABS: UREA NITROGEN (BUN) 13 mg/dL (9-23)
[2017-10-13 06:44] LABS: BASOPHIL (%) 0 % (0-1); EOSINOPHIL (%) 1.9 % (0-5); EOSINOPHIL COUNT 0.1 K/uL (0-0.3); IMMATURE GRANULOCYTE (%) 4.2 % (0.0-0.7); LYMPHOCYTE (%) 25.9 % (15-42); LYMPHOCYTE COUNT 1.2 K/uL (1.0-2.8); MONOCYTE (%) 2.7 % (3-12); MONOCYTE COUNT 0.1 K/uL (0-0.8); NEUTROPHIL (%) 65.3 % (45-76); NEUTROPHIL COUNT 3.1 K/uL (1.8-6.4); PLAT.SUFFICIENCY ADEQUATE
[2017-10-13 06:46] LABS: PLATELET COUNT 162 K/uL (156-360)
[2017-10-14 14:01] LABS: HEMATOCRIT 36.6 % (36.0-46.0); HEMOGLOBIN 11.1 G/DL (11.9-15.5); MCH 26.2 PG (29.0-34.0); MCHC 30.3 G/DL (30.0-36.0); MCV 86.5 FL (83-99); PLATELET COUNT 175 K/uL (156-360); RBC DIS.WIDTH-CV 24.6 % (11.8-14.6); RBC DIS.WIDTH-SD 76.6 % (39-53); RED BLOOD COUNT 4.23 M/uL (3.80-5.20); WHITE BLOOD COUNT 7.5 K/uL (4.1-10.2)
[2017-10-14 14:23] LABS: CREATININE 0.7 MG/DL (0.6-1.3); GFR ESTIMATE (CALCULATED) > 59 mL/min/; GLUCOSE 141 mg/dL (70-99); SODIUM 142 MEQ/L (136-147); UREA NITROGEN (BUN) 13 mg/dL (9-23)
[2017-10-14 14:29] LABS: CHLORIDE 108 MEQ/L (99-109); PHOSPHORUS 3.5 mg/dL (2.5-4.9); POTASSIUM 4.3 MEQ/L (3.7-5.4)
[2017-10-14 19:32] VITALS: BP 105/62
[2017-10-14 22:00] VITALS: BP 138/115
[2017-10-14 23:02] VITALS: BP 115/65
[2017-10-15] VITALS (12 sets, daily range): BP systolic 117–151; BP diastolic 53–80
[2017-10-16] VITALS (8 sets, daily range): BP systolic 110–173; BP diastolic 59–78
[2017-10-16 07:16] LABS: BASOPHIL (%) 0.1 % (0-1); EOSINOPHIL (%) 1.5 % (0-5); EOSINOPHIL COUNT 0.2 K/uL (0-0.3); HEMATOCRIT 39.3 % (36.0-46.0); HEMOGLOBIN 11.8 G/DL (11.9-15.5); IMMATURE GRANULOCYTE (%) 1.2 % (0.0-0.7); LYMPHOCYTE (%) 22.4 % (15-42); LYMPHOCYTE COUNT 2.3 K/uL (1.0-2.8); MCH 26.2 PG (29.0-34.0); MCV 87.1 FL (83-99); MONOCYTE (%) 6.1 % (3-12); MONOCYTE COUNT 0.6 K/uL (0-0.8); NEUTROPHIL (%) 68.7 % (45-76); PLATELET COUNT 186 K/uL (156-360); RBC DIS.WIDTH-CV 23.9 % (11.8-14.6); RBC DIS.WIDTH-SD 74.8 % (39-53); RED BLOOD COUNT 4.51 M/uL (3.80-5.20); WHITE BLOOD COUNT 10.2 K/uL (4.1-10.2)
[2017-10-16 07:43] LABS: ALBUMIN 3.7 G/DL (3.2-4.8); ALKALINE PHOSPHATASE 52 IU/L (3-129); ALT (GPT) 28 IU/L (3-49); AST (GOT) 26 IU/L (2-34); CHLORIDE 102 MEQ/L (99-109); CREATININE 0.7 MG/DL (0.6-1.3); GFR ESTIMATE (CALCULATED) > 59 mL/min/; GLUCOSE 104 mg/dL (70-99); POTASSIUM 3.8 MEQ/L (3.7-5.4); SODIUM 141 MEQ/L (136-147); TOTAL BILIRUBIN 0.4 MG/DL (0.0-1.0); TOTAL PROTEIN 6.3 G/DL (6.4-8.3); UREA NITROGEN (BUN) 19 mg/dL (9-23)
[2017-10-17] VITALS (7 sets, daily range): BP systolic 110–138; BP diastolic 56–74
[2017-10-17 06:59] LABS: HEMATOCRIT 37.8 % (36.0-46.0); HEMOGLOBIN 11.7 G/DL (11.9-15.5); MCV 87.1 FL (83-99); PLATELET COUNT 188 K/uL (156-360); RBC DIS.WIDTH-CV 24.4 % (11.8-14.6); RBC DIS.WIDTH-SD 74.8 % (39-53); RED BLOOD COUNT 4.34 M/uL (3.80-5.20); WHITE BLOOD COUNT 10.2 K/uL (4.1-10.2)
[2017-10-17 07:25] LABS: CHLORIDE 102 MEQ/L (99-109); CREATININE 0.8 MG/DL (0.6-1.3); GFR ESTIMATE (CALCULATED) > 59 mL/min/; GLUCOSE 107 mg/dL (70-99); POTASSIUM 3.5 MEQ/L (3.7-5.4); SODIUM 139 MEQ/L (136-147); UREA NITROGEN (BUN) 20 mg/dL (9-23)
[2017-10-18 04:18] VITALS: BP 107/57
[2017-10-18 06:59] LABS: HEMATOCRIT 47.9 % (36.0-46.0); MCH 26.2 PG (29.0-34.0); MCHC 28.8 G/DL (30.0-36.0); MCV 90.9 FL (83-99); RBC DIS.WIDTH-CV 24.4 % (11.8-14.6); RBC DIS.WIDTH-SD 78.3 % (39-53); WHITE BLOOD COUNT 14.1 K/uL (4.1-10.2)
[2017-10-18 07:01] LABS: HEMOGLOBIN 13.8 G/DL (11.9-15.5); PLATELET COUNT 250 K/uL (156-360); RED BLOOD COUNT 5.27 M/uL (3.80-5.20)
[2017-10-18 07:26] LABS: CHLORIDE 105 MEQ/L (99-109); GFR ESTIMATE (CALCULATED) > 59 mL/min/; GLUCOSE 82 mg/dL (70-99); SODIUM 137 MEQ/L (136-147); UREA NITROGEN (BUN) 20 mg/dL (9-23)
[2017-10-18] MEDS ORDERED: MONTELUKAST SOD10 MG PO (11:08)
[2017-10-18] MEDS ORDERED: DOXYCYCLINE HY100 M3 PO (11:08)
[2017-10-18] MEDS ORDERED: VANCOMYCIN125 MG/2.5 PO (11:09)
[2017-10-18] MEDS ORDERED: PREDNISONE10 MG PO (11:09)
[2017-10-18] MEDS ORDERED: ACIDOPHILUS LA1 EACH PO (11:09)
[2017-10-18] MEDS ORDERED: CALCIUM 500 MG1 EACH PO (11:09)
== END 2017-10-18 12:30 | disposition home or self-care (01) | DRG 871 ==
LOC: EME → EDBD 20:41 → EME 20:41 → EDOF 22:33 → 4WEST 22:33 → ENRESERV 22:34 → 4WEST 23:26 → ENRESERV 10-07 22:37 → 4EAST 10-08 00:23 → ENRESERV 10-12 02:43 → 4WEST 10-12 02:47 → ENRESERV 10-15 10:55 → 2EAST 10-15 16:21
PROVIDERS: Emergency Medicine; Hospitalist; Internal Medicine Critical Care Medicine; Physician Assistant; Specialist; Student in an Organized Health Care Education/Training Program; Surgery
DX: A41.9 Sepsis, unspecified organism (principal); I50.33 Acute on chronic diastolic (congestive) heart failure; A04.72 Enterocolitis due to Clostridium difficile, not specified as recurrent; J96.21 Acute and chronic respiratory failure with hypoxia; J96.22 Acute and chronic respiratory failure with hypercapnia; I11.0 Hypertensive heart disease with heart failure; J18.9 Pneumonia, unspecified organism; J44.0 Chronic obstructive pulmonary disease with (acute) lower respiratory infection; J44.1 Chronic obstructive pulmonary disease with (acute) exacerbation; D86.9 Sarcoidosis, unspecified; F31.9 Bipolar disorder, unspecified; Z87.891 Personal history of nicotine dependence; K21.9 Gastro-esophageal reflux disease without esophagitis; E78.5 Hyperlipidemia, unspecified; E66.2 Morbid (severe) obesity with alveolar hypoventilation; Z68.38 Body mass index [BMI] 38.0-38.9, adult; E87.2 Acidosis; E87.6 Hypokalemia; I27.20 Pulmonary hypertension, unspecified; D64.9 Anemia, unspecified; G89.29 Other chronic pain; J98.09 Other diseases of bronchus, not elsewhere classified; F41.0 Panic disorder [episodic paroxysmal anxiety]; R56.9 Unspecified convulsions
CPT/HCPCS: 36600; 70450; 71045; 71046; 71250; 80048; 80053; 80198; 80202; 81003; 82330; 82803; 83605; 83735; 83880; 84100; 84478; 84484; 85025; 85027; 85610; 85730; 87040; 87070; 87205; 87449; 87493; 87641; 93005; 93970; 94002; 94003; 94640; 94640 76; 94660; 94667; 94668; 94760; 94799; 95819; 99202; 99281; 99285; A6214; C1751; J0360; J0456; J0696; J1100; J1644; J1940; J2060; J2405; J2543; J2704; J2930; J3010; J3370; J3475; J3480; J7030; J7040; J7050; J7120; J7512; J7644; S0028